=== PATIENT | female | born 1960 | race Caucasian/White ===

== ENCOUNTER 2019-08-14 09:38 | Outpatient (RCR) | payer BC, SELFPAY | END 2019-09-11 00:01 | LOC: SPT 09:38 | DX: M25.552 Pain in left hip (principal) | CPT/HCPCS: 97110 ×6; 97163 ==

== ENCOUNTER 2019-09-12 | Outpatient (RCR) | payer BC, SELFPAY | END 2019-10-12 13:36 | disposition home or self-care (01) | LOC: SPT | PROVIDERS: Visit Provider Internal Medicine Hematology & Oncology | DX: M25.552 Pain in left hip (principal) | CPT/HCPCS: 97110 ==

== ENCOUNTER → 2020-04-23 14:21 | Outpatient (BNVA) | payer BC, SELFPAY | PROVIDERS: Visit Provider Nurse Practitioner Family | DX: Z11.59 Encounter for screening for other viral diseases (principal); R53.82 Chronic fatigue, unspecified; R53.81 Other malaise; R51 Headache | CPT/HCPCS: 87635 ==